=== PATIENT | female | born 1985 | race Caucasian/White ===

== ENCOUNTER 2019-04-29 08:45 | Outpatient (CLI) | payer OTHER ==
--- NOTE | 2019-04-29 09:47 | MMO ---
Bilateral MAMMO Bilat Diag [facility]. CLINICAL HISTORY: Patient is 33 years old and is seen for diagnostic exam. VIEWS: The views performed were: bilateral craniocaudal with tomosynthesis; bilateral mediolateral oblique with tomosynthesis; and bilateral mediolateral with tomosynthesis. FILMS COMPARED: The present examination has been compared to a prior imaging study performed at [facility] on 04/29/2019. MAMMOGRAM FINDINGS: There are scattered fibroglandular densities. There are no suspicious masses, suspicious calcifications, or areas of architectural distortion. There are no mammographic or sonographic abnormalities in the areas of palpable concern. The patient is referred back to her clinician. Negative imaging findings should not preclude biopsy if clinical findings are suspicious. IMPRESSION: THERE IS NO MAMMOGRAPHIC EVIDENCE OF MALIGNANCY. 3BTHE RESULTS OF THIS EXAM WERE SENT TO THE PATIENT.0B ACR BI-RADS Category 1 - Negative MAMMOGRAPHY NOTE: 1. A negative mammogram report should not delay a biopsy if a dominant of clinically suspicious mass is present. 2. Approximately 10% to 15% of breast cancers are not detected by mammography. 3. Adenosis and dense breasts may obscure an underlying neoplasm. Reported by: RADHA IRVIN MD Electonically Signed: [id number]
--- NOTE | 2019-04-29 10:56 | ULT ---
LIMITED RIGHT BREAST ULTRASOUND: Date: 04/29/19 PROVIDED CLINICAL HISTORY: Palpable abnormality. FINDINGS: Limited sonographic interrogation was performed of the right breast in the region of palpable concern . The sonographic appearance of the breast tissue in this region is normal. IMPRESSION: BIRADS Category 1 - Negative. Negative imaging findings should not preclude further evaluation of a c linically suspicious abnormality. The patient is referred back to her clinician. POS: OFF
--- NOTE | 2019-04-29 10:58 | ULT ---
LIMITED LEFT BREAST ULTRASOUND: Date: 04/29/19 PROVIDED CLINICAL HISTORY: Left breast palpable abnormality. FINDINGS: Limited sonographic interrogation of the left breast was performed at the 1 and 7 o'clock positions o f the left breast. The breast parenchyma in these regions appear normal. IMPRESSION: BIRADS Category 1 - Negative. Negative imaging findings should not preclude further evaluation of a c linically suspicious abnormality. The patient is referred back to her clinician. POS: OFF
== END 2019-04-29 08:46 | disposition home or self-care (01) ==
LOC: BICMAMMO 08:45
PROVIDERS: ATTEND Family Medicine
DX: N63.10 Unspecified lump in the right breast, unspecified quadrant (principal)
CPT/HCPCS: 77066; G0279